=== PATIENT | female | born 1955 | race Caucasian/White ===

== ENCOUNTER → 2016-07-22 | Outpatient (CLI) | payer OTHER ==
--- NOTE | 2016-07-22 11:48 | RADRPT ---
PROCEDURE: XR pelvis/left hip. CLINICAL INDICATION: Hip pain TECHNIQUE: AP pelvis/AP and lateral left hip views available for review. COMPARISON: None available FINDINGS: The osseous structures are normal in mineralization, architecture and alignment. No fractures are i dentified. No osseous lesions are identified. The joints are unremarkable. The soft tissues are u nremarkable. IMPRESSION: Unremarkable examination RPTAT: [facility] .Jl Platt MD, MD Date Time Electronically viewed and signed by .Jl Platt MD, on 07/22/2016 11:48 .B/
== END | disposition home or self-care (01) ==
LOC: HKI 10:18
PROVIDERS: ATTEND Orthopaedic Surgery
DX: M16.12 Unilateral primary osteoarthritis, left hip (principal); M25.552 Pain in left hip; M81.0 Age-related osteoporosis without current pathological fracture; Z96.652 Presence of left artificial knee joint; Z87.891 Personal history of nicotine dependence
CPT/HCPCS: 73502; Z7500; G0463

== ENCOUNTER → 2016-08-14 | Outpatient (CLI) | payer OTHER ==
[~2016-08-14] MED LIST: IOHEXOL 300MG/ML 30 ML BTL ONE; LIDOCAINE 1% (MPF) 5 ML VIAL INJ ONE; METHYLPREDNISOLONE ACET 40 MG/ML 1 ML INJ ONE
--- NOTE | 2016-08-14 14:28 | RADRPT ---
PROCEDURE: Left hip arthrogram or steroid and lidocaine injection CLINICAL INDICATION: Left hip pain. TECHNIQUE: The risks and benefits of the procedure were explained to the patient including but not limited to bleeding, infection, pain, vascular or nerve injury, and failed procedure. Utilizing fl uoroscopic guidance, a 22-gauge needle was introduced into the left hip joint after the region was p repared and draped in the usual sterile fashion. Intra-articular placement of the needle was confirm ed with 1 cc of Omnipaque-300 contrast. Subsequently, 5 cc of 1% lidocaine and 1 ml of Depo-Medrol (40 mg/ml) was injected into the left hip joint. COMPARISON: Radiographs of the pelvis July 22, 2016 FINDINGS: Successful left hip arthrogram with steroid and anesthetic as above. There were no immediate complic ations. IMPRESSION: 1. Successful left hip arthrogram with steroid and anesthetic as above. RPTAT: [facility] .Hugo Pickering MD, MD Date Time Electronically viewed and signed by .Hugo Pickering MD, on 08/14/2016 14:28 .K/
== END | disposition home or self-care (01) ==
LOC: RAD 12:37
PROVIDERS: ATTEND Orthopaedic Surgery
DX: M25.552 Pain in left hip (principal)
CPT/HCPCS: 20610; 77002; J1030; Q9967; Z7610